=== PATIENT | male | born 1935 | race Caucasian/White ===

== ENCOUNTER → 2016-07-26 | Outpatient (CLI) | payer MEDICARE, OTHER ==
[2016-07-26 08:25] LABS: MEAN CORPUSCULAR HGB CONC 33.7 g/dL (31.0-37.0); MEAN PLATELET VOLUME 10.1 FL (6.0-9.5); PLATELET COUNT 249 10^3uL (150-450); WHITE BLOOD COUNT 8.47 10^3uL (4.0-11.0)
[2016-07-26 08:37] LABS: ANION GAP 14.8 MEQ/L (3-15); CALCULATED IONIZED CALCIUM 4.2 mg/dL (3.8-4.6); MAGNESIUM* 1.7 mg/dL (1.6-2.3); MEAN CORPUSCULAR HEMOGLOBIN 33.3 PG (26.0-34.0); MEAN CORPUSCULAR VOLUME 99 FL (80-100); PHOSPHORUS 4.7 mg/dL (2.4-4.9); TOTAL PROTEIN 6.8 g/dL (6.4-8.5)
[2016-07-26 08:50] LABS: BAND NEUTROPHILS % 1 % (0-6); EOSINOPHILS % 4 % (0-4); LYMPHOCYTES # 2.8 #; MONOCYTES # 0.5 #; MONOCYTES % 6 % (3-11); RBC MORPH NORMAL (NORMAL); SEGMENTED NEUTROPHILS % 56 % (51-67); TOTAL CELLS COUNTED 100
[2016-07-26 20:16] LABS: IRON 74 ug/dL (65-175); UNBOUND IRON CONTENT 207 ug/dl (126-382)
== END ==
LOC: RAD 08:06
PROVIDERS: ATTEND Internal Medicine Hematology & Oncology
DX: C83.39 Diffuse large B-cell lymphoma, extranodal and solid organ sites (principal)
CPT/HCPCS: 36415; 70553; 80053; 82728; 83540; 83550; 83615; 83735; 84100; 85007; 85027; A9579

== ENCOUNTER → 2016-09-02 | Outpatient (CLI) | payer MEDICARE, OTHER | LOC: RAD 12:36 | PROVIDERS: ATTEND Family Medicine | DX: M79.662 Pain in left lower leg (principal); M79.661 Pain in right lower leg; I70.201 Unspecified atherosclerosis of native arteries of extremities, right leg | CPT/HCPCS: 93925 ==

== ENCOUNTER → 2016-10-18 | Outpatient (CLI) | payer MEDICARE, OTHER ==
[~2016-10-18] MED LIST: ALLO300T2 PO; ALPR.25T PO; ALPR.5T PO; ALPR1TAB2 PO; ASPI-504 PO; ATOR20TA PO; BETA1TAB15 PO; FOLI1TAB6 PO; LEVE500T6 PO; LEVO125T70 PO; LSNP20T PO; OMEG1CAP61 PO; OMEG300C3 PO; VIT1TABL26 PO
[2016-10-18 08:27] LABS: MEAN CORPUSCULAR HGB CONC 33.4 g/dL (31.0-37.0); MEAN CORPUSCULAR VOLUME 95 FL (80-100); MEAN PLATELET VOLUME 10.7 FL (6.0-9.5); PLATELET COUNT 202 10^3uL (150-450); WHITE BLOOD COUNT 8.78 10^3uL (4.0-11.0)
[2016-10-18 08:40] LABS: MEAN CORPUSCULAR HEMOGLOBIN 31.7 PG (26.0-34.0)
[2016-10-18 08:45] LABS: BAND NEUTROPHILS % 1 % (0-6); EOSINOPHILS % 2 % (0-4); LYMPHOCYTES # 3.4 #; MONOCYTES # 0.5 #; MONOCYTES % 6 % (3-11); RBC MORPH NORMAL (NORMAL); SEGMENTED NEUTROPHILS % 52 % (51-67); TOTAL CELLS COUNTED 100
[2016-10-18 08:46] LABS: ANION GAP 13.7 MEQ/L (3-15); MAGNESIUM* 1.8 mg/dL (1.6-2.3)
== END ==
LOC: LAB 08:16
PROVIDERS: ATTEND Internal Medicine Hematology & Oncology
DX: C83.39 Diffuse large B-cell lymphoma, extranodal and solid organ sites (principal)
CPT/HCPCS: 36415; 80053; 83615; 83735; 84100; 85007; 85027

== ENCOUNTER → 2016-10-19 | Outpatient (CLI) | payer MEDICARE, OTHER ==
--- NOTE | 2016-10-19 13:24 | Diagnostic Imaging Report ---
PROCEDURE: MR imaging of the brain with and without contrast. TECHNIQUE: Multiplanar, multisequence MR imaging of the brain was performed with and without contrast. INDICATION: Non-Hodgkin's lymphoma and cerebrovascular accident approximately six weeks ago. COMPARISON: Comparison is made to study of 07/26/2016. FINDINGS: Ventricles and sulci remain diffusely prominent with area of encephalomalacia in the posterior left temporal lobe which is unchanged from previous examination. This region underlies site of previous surgery. There is no evidence of an acute infarct. No abnormal mass effect or shift of midline structures is identified. There is no abnormal contrast enhancement. IMPRESSION: Stable postoperative changes in the posterior left temporal lobe. There is no evidence of acute infarct or abnormal enhancement to indicate residual or recurrent neoplasm. Dictated by: Dictated on workstation # [id number]
== END ==
LOC: RAD 11:18
PROVIDERS: ATTEND Internal Medicine Hematology & Oncology
DX: C83.39 Diffuse large B-cell lymphoma, extranodal and solid organ sites (principal)
CPT/HCPCS: 70553; A9579